=== PATIENT | male | born 1975 | race Caucasian/White ===

== ENCOUNTER 2018-12-05 | Emergency (ER) | payer OTHER ==
[~2018-12-05] MED LIST: ALBUTEROL2.5 MG/0.5 INH; AMBIEN PO; AMOXICILLIN500 MG PO; BENZONATATE100 M1 PO; CELEXA PO; CITALOPRAM HYDR20 MG PO; CYCLOBENZAPRINE PO; CYCLOBENZAPRINE10 MG PO; LEVAQUIN PO; MEDROL DOSEPAK4 MG PO; NAPROXEN PO; NAPROXEN500 M1 PO; NKHM PO; PANTOPRAZOLE SO40 MG PO; PREDNISONE PO; PREDNISONE10 MG PO; PROAIR HFA0.09 MG/AC INH; PROAIR HFA8.5 GM INH; QVAR0.08 MG/AC INH; ROBITUSSIN AC 110 ML PO; SINGULAIR PO; SINGULAIR10 M1 PO; TESSALON PERLES PO; ZOLPIDEM TART10 MG PO
[2018-12-05] MEDS ORDERED: ZOLPIDEM TART10 MG PO (22:46)
[2018-12-05] MEDS ORDERED: GABAPENTIN100 M2 PO (22:46)
[2018-12-05] MEDS ORDERED: VENLAFAXINE H37.5 M5 PO (22:47)
[2018-12-05] MEDS ORDERED: OMEPRAZOLE D/R20 MG PO (22:47)
[2018-12-05] MEDS ORDERED: CLINDAMYCIN150 MG PO (22:55)
[2018-12-05] MEDS ORDERED: IBU800 MG PO (22:55)
[2019-04-10] MEDS ORDERED: CIPRO500 MG PO (15:07)
[2019-04-10] MEDS ORDERED: ANTIBIOTIC28.4 GM T (15:07)
== END 2018-12-05 23:03 | disposition home or self-care (01) ==
DX: K02.9 Dental caries, unspecified (principal); K05.00 Acute gingivitis, plaque induced; K21.9 Gastro-esophageal reflux disease without esophagitis; J45.909 Unspecified asthma, uncomplicated; G89.29 Other chronic pain; Z88.8 Allergy status to other drugs, medicaments and biological substances; Z79.899 Other long term (current) drug therapy

== ENCOUNTER → 2019-08-21 | Outpatient (CLI) | payer OTHER ==
[~2019-08-21] MED LIST changes: +ANTIBIOTIC28.4 GM T; +CIPRO500 MG PO; +CLINDAMYCIN150 MG PO; +GABAPENTIN100 M2 PO; +IBU800 MG PO; +OMEPRAZOLE D/R20 MG PO; +VENLAFAXINE H37.5 M5 PO
== END | disposition home or self-care (01) ==
LOC: RAD 09:32
DX: M47.816 Spondylosis without myelopathy or radiculopathy, lumbar region (principal)

== ENCOUNTER 2019-10-31 20:34 | Emergency (ER) | payer OTHER ==
[~2019-10-31] VITALS: Ht 167.6 cm; Wt 85.3 kg
[2019-10-31] MEDS ORDERED: CYCLOBENZAPRINE10 MG PO (23:00)
== END 2019-10-31 23:02 | disposition home or self-care (01) ==
LOC: ED 20:34
DX: M54.41 Lumbago with sciatica, right side (principal); M51.36 Other intervertebral disc degeneration, lumbar region; J45.909 Unspecified asthma, uncomplicated; G89.29 Other chronic pain; K21.9 Gastro-esophageal reflux disease without esophagitis; F17.200 Nicotine dependence, unspecified, uncomplicated; Z88.8 Allergy status to other drugs, medicaments and biological substances; Z79.2 Long term (current) use of antibiotics; Z79.899 Other long term (current) drug therapy

== ENCOUNTER → 2019-11-17 | Outpatient (CLI) | payer OTHER | END | disposition home or self-care (01) | LOC: MRI 12:28 | DX: M47.817 Spondylosis without myelopathy or radiculopathy, lumbosacral region (principal); M48.061 Spinal stenosis, lumbar region without neurogenic claudication; M51.27 Other intervertebral disc displacement, lumbosacral region ==

== ENCOUNTER 2020-01-16 13:35 | Emergency (ER) | payer OTHER ==
[~2020-01-16] VITALS: Wt 80.3 kg
[2020-01-16 14:01] LABS: BASO # 0.1 10*3/uL (0.0-0.1); BASO % 0.7 % (0.0-1.0); EOS # 0.2 10*3/uL (0.0-0.4); EOS % 0.9 % (1.0-4.0); HEMATOCRIT 44.5 % (42.0-52.0); LYMPH # 2.5 10*3/uL (1.3-4.4); MEAN CELL VOLUME 89.9 fl (80.0-94.0); MEAN CORPUSCULAR HGB 30.3 pg (27.0-31.0); MEAN CORPUSCULAR HGB CONC 33.7 g/dl (33.0-37.0); MEAN PLATELET VOLUME 11.2 fl (9.6-12.3); MONO % 5.7 % (3.0-9.0); NEUT # 13.6 10*3/uL (2.3-7.9); NEUT % 78.1 % (47.0-73.0); PLATELET COUNT AUTOMATED 258 10*3/uL (130-400); RED BLOOD COUNT 4.95 10*6/uL (4.50-5.90); RED CELL DISTRI WIDTH 13.6 % (0-14.5); WHITE BLOOD COUNT 17.4 10*3/uL (4.8-10.8)
[2020-01-16 14:17] LABS: ALKALINE PHOSPHATASE 85 U/L (45-117); BUN 16 mg/dl (7-24); CHLORIDE 108 mmol/L (98-107); CREATININE 1.13 mg/dL (0.70-1.30); LIPASE 71 U/L (73-393); POTASSIUM 3.9 mmol/L (3.5-5.1); SGOT/AST 14 IU/L (3-35); SGPT/ALT 33 U/L (12-78); SODIUM 140 mmol/L (136-145); TOTAL PROTEIN 7.3 gm/dL (6.4-8.2)
[2020-01-16 15:32] LABS: BILIRUBIN 1+ (NEGATIVE); BLOOD 3+ (NEGATIVE); CLARITY CLEAR (CLEAR); COLOR YELLOW (YELLOW); GLUCOSE NEGATIVE (NEGATIVE); KETONE NEGATIVE (NEGATIVE); LEUKO ESTERASE NEGATIVE (NEGATIVE); NITRITE NEGATIVE (NEGATIVE); UROBILINOGEN 0.2 E.U./dl (0.2-1.0)
[2020-01-16 15:33] LABS: BACTERIA 1+; MUCOUS 2+; RBC 51-100 rbc/hpf (0-2)
[2020-01-16] MEDS ORDERED: KETOROLAC10 MG PO (17:15)
[2020-01-16] MEDS ORDERED: FLOMAX0.4 MG PO (17:15)
[2020-01-16] MEDS ORDERED: MIRALAX POWDER17 G1 PO (17:15)
[2020-01-16] MEDS ORDERED: ZOFRAN4 MG PO (17:15)
== END 2020-01-16 17:33 | disposition home or self-care (01) ==
LOC: ED 13:35
PROVIDERS: Nurse Practitioner Family
DX: N20.9 Urinary calculus, unspecified (principal); K59.00 Constipation, unspecified; J45.909 Unspecified asthma, uncomplicated; F31.9 Bipolar disorder, unspecified; F17.200 Nicotine dependence, unspecified, uncomplicated; K21.9 Gastro-esophageal reflux disease without esophagitis; Z79.899 Other long term (current) drug therapy; Z88.8 Allergy status to other drugs, medicaments and biological substances; Z79.2 Long term (current) use of antibiotics

== ENCOUNTER 2020-07-12 15:52 | Emergency (ER) | payer OTHER ==
[~2020-07-12 15:52] MED LIST changes: +FLOMAX0.4 MG PO; +KETOROLAC10 MG PO; +MIRALAX POWDER17 G1 PO; +ZOFRAN4 MG PO
[2020-07-12] MEDS ORDERED: IBU800 MG PO (18:35)
== END 2020-07-12 18:46 | disposition home or self-care (01) ==
LOC: ED 15:52
DX: S99.912A Unspecified injury of left ankle, initial encounter (principal); M79.672 Pain in left foot; J45.909 Unspecified asthma, uncomplicated; K21.9 Gastro-esophageal reflux disease without esophagitis; F17.200 Nicotine dependence, unspecified, uncomplicated; Z88.8 Allergy status to other drugs, medicaments and biological substances; Z79.899 Other long term (current) drug therapy; W22.8XXA Striking against or struck by other objects, initial encounter; Y93.89 Activity, other specified; Y92.89 Other specified places as the place of occurrence of the external cause; Y99.8 Other external cause status

== ENCOUNTER 2020-08-29 22:45 | Emergency (ER) | payer OTHER ==
[~2020-08-29] VITALS: Ht 165.1 cm; Wt 90.7 kg
[2020-08-29] MEDS ORDERED: NEURONTIN300 MG PO (22:54)
[2020-08-29] MEDS ORDERED: ZOLPIDEM10 MG PO (22:55)
[2020-08-29] MEDS ORDERED: ROPINIROLE HYD0.5 MG PO (22:55)
[2020-08-29] MEDS ORDERED: DIVALPROEX SOD250 MG PO (22:55)
[2020-08-29] MEDS ORDERED: MONTELUKAST SOD10 MG PO (22:55)
[2020-08-29] MEDS ORDERED: CELECOXIB200 M1 PO (22:55)
[2020-08-29] MEDS ORDERED: OMEPRAZOLE MAGN20 MG PO (22:56)
[2020-08-29] MEDS ORDERED: SERTRALINE HYDR50 MG PO (22:56)
[2020-08-29] MEDS ORDERED: PROAIR HFA8.5 GM INH (22:57)
== END 2020-08-30 00:07 | disposition home or self-care (01) ==
LOC: ED 22:45
DX: H61.23 Impacted cerumen, bilateral (principal); J06.9 Acute upper respiratory infection, unspecified; Z88.8 Allergy status to other drugs, medicaments and biological substances; Z79.899 Other long term (current) drug therapy

== ENCOUNTER → 2020-09-18 | Outpatient (CLI) | payer OTHER ==
[~2020-09-18] MED LIST changes: +CELECOXIB200 M1 PO; +DIVALPROEX SOD250 MG PO; +MONTELUKAST SOD10 MG PO; +NEURONTIN300 MG PO; +OMEPRAZOLE MAGN20 MG PO; +ROPINIROLE HYD0.5 MG PO; +SERTRALINE HYDR50 MG PO; +ZOLPIDEM10 MG PO
[2020-09-18 12:45] LABS: BASO # 0.1 10*3/uL (0.0-0.1); BASO % 0.7 % (0.0-1.0); EOS # 0.4 10*3/uL (0.0-0.4); EOS % 3.7 % (1.0-4.0); LYMPH # 3.3 10*3/uL (1.3-4.4); LYMPH % 32.4 % (27.0-41.0); MEAN CELL VOLUME 90.1 fl (80.0-94.0); MEAN CORPUSCULAR HGB 29.6 pg (27.0-31.0); MEAN CORPUSCULAR HGB CONC 32.8 g/dl (33.0-37.0); MEAN PLATELET VOLUME 10.8 fl (9.6-12.3); MONO # 0.5 10*3/uL (0.1-1.0); MONO % 4.6 % (3.0-9.0); NEUT # 5.9 10*3/uL (2.3-7.9); NEUT % 57.9 % (47.0-73.0); PLATELET COUNT AUTOMATED 248 10*3/uL (130-400); RED BLOOD COUNT 4.77 10*6/uL (4.50-5.90); WHITE BLOOD COUNT 10.1 10*3/uL (4.8-10.8)
[2020-09-18 13:10] LABS: ALBUMIN 3.5 gm/dl (3.1-4.5); ALKALINE PHOSPHATASE 88 U/L (45-117); BUN 14 mg/dl (7-24); CHLORIDE 109 mmol/L (98-107); CHOLESTEROL 187 mg/dL (<200); CREATININE 0.97 mg/dL (0.70-1.30); HDL CHOLESTEROL 50 mg/dl (40-60); LDL CHOLESTEROL 118 mg/dL (9-159); POTASSIUM 4.1 mmol/L (3.5-5.1); SGOT/AST 22 IU/L (3-35); SGPT/ALT 34 U/L (12-78); SODIUM 141 mmol/L (136-145); TOTAL PROTEIN 7.1 gm/dL (6.4-8.2); TRIGLYCERIDES 96 mg/dl (<150); VLDL CHOLESTEROL 19 mg/dL (6-40)
[2020-09-18 13:34] LABS: VITAMIN D, 25-HYDROXY 20.4 ng/mL (30-100)
== END | disposition home or self-care (01) ==
LOC: LAB 12:25
PROVIDERS: ATTEND Internal Medicine
DX: Z12.5 Encounter for screening for malignant neoplasm of prostate (principal); D52.9 Folate deficiency anemia, unspecified; D51.9 Vitamin B12 deficiency anemia, unspecified; R79.82 Elevated C-reactive protein (CRP); R74.8 Abnormal levels of other serum enzymes; R53.81 Other malaise; E55.9 Vitamin D deficiency, unspecified; Z00.00 Encounter for general adult medical examination without abnormal findings

== ENCOUNTER → 2021-04-25 | Outpatient (CLI) | payer OTHER | END | disposition home or self-care (01) | LOC: ORTHO 01:57 | PROVIDERS: ATTEND Orthopaedic Surgery | DX: M17.12 Unilateral primary osteoarthritis, left knee (principal); M25.862 Other specified joint disorders, left knee ==

== ENCOUNTER 2021-05-27 16:18 | Emergency (ER) | payer OTHER ==
[~2021-05-27] VITALS: Ht 167.6 cm; Wt 87.5 kg
[2021-05-27] MEDS ORDERED: DOXYCYCLINE100 M3 PO (20:04)
[2021-05-27] MEDS ORDERED: PROVENTIL HFA6.7 GM INH (20:04)
== END 2021-05-27 20:11 | disposition home or self-care (01) ==
LOC: ED 16:18
DX: J18.9 Pneumonia, unspecified organism (principal); Z88.8 Allergy status to other drugs, medicaments and biological substances; Z79.899 Other long term (current) drug therapy; Z98.890 Other specified postprocedural states

== ENCOUNTER 2021-07-19 18:54 | Inpatient (IN) | payer OTHER ==
[~2021-07-19] VITALS: Ht 167.6 cm; Wt 81.4 kg
[~2021-07-19 18:54] MED LIST changes: +DOXYCYCLINE100 M3 PO; +PENICILLIN VK500 MG PO; +PROVENTIL HFA6.7 GM INH
[2021-07-19 19:00] VITALS: BP 117/76
[2021-07-19 20:09] LABS: BASO # 0.1 10*3/uL (0.0-0.1); BASO % 0.6 % (0.0-1.0); EOS # 0.2 10*3/uL (0.0-0.4); EOS % 1.8 % (1.0-4.0); HEMATOCRIT 40.2 % (42.0-52.0); LYMPH # 2.6 10*3/uL (1.3-4.4); MEAN CELL VOLUME 89.5 fl (80.0-94.0); MEAN CORPUSCULAR HGB 29.4 pg (27.0-31.0); MEAN CORPUSCULAR HGB CONC 32.8 g/dl (33.0-37.0); MEAN PLATELET VOLUME 10.8 fl (9.6-12.3); MONO # 0.8 10*3/uL (0.1-1.0); MONO % 6.6 % (3.0-9.0); NEUT # 8.2 10*3/uL (2.3-7.9); NEUT % 68.7 % (47.0-73.0); PLATELET COUNT AUTOMATED 289 10*3/uL (130-400); RED BLOOD COUNT 4.49 10*6/uL (4.50-5.90); RED CELL DISTRI WIDTH 13.2 % (0-14.5); WHITE BLOOD COUNT 11.9 10*3/uL (4.8-10.8)
[2021-07-19 20:23] LABS: ALBUMIN 3.7 gm/dl (3.1-4.5); ALKALINE PHOSPHATASE 84 U/L (45-117); BUN 15 mg/dl (7-24); CHLORIDE 107 mmol/L (98-107); CREATININE 1.01 mg/dL (0.70-1.30); POTASSIUM 3.7 mmol/L (3.5-5.1); SGOT/AST 28 IU/L (3-35); SGPT/ALT 54 U/L (12-78); SODIUM 140 mmol/L (136-145); TOTAL PROTEIN 7.4 gm/dL (6.4-8.2)
[2021-07-19 21:49] VITALS: BP 122/79
[2021-07-19] MEDS ORDERED: DEPAKOTE250 MG PO (21:49)
[2021-07-19 23:35] VITALS: BP 126/70
[2021-07-20] MEDS ORDERED: PENICILLIN VK500 MG PO (00:04)
[2021-07-20] MEDS ORDERED: TRAZODONE50 MG PO (00:08)
[2021-07-20] MEDS ORDERED: ROPINIROLE HY0.25 MG PO (00:09)
[2021-07-20] MEDS ORDERED: VITAMIN D350 MC2 GT (00:11)
[2021-07-20 06:31] LABS: BASO # 0.1 10*3/uL (0.0-0.1); BASO % 0.9 % (0.0-1.0); EOS # 0.3 10*3/uL (0.0-0.4); EOS % 2.7 % (1.0-4.0); HEMATOCRIT 38.8 % (42.0-52.0); LYMPH # 2.6 10*3/uL (1.3-4.4); LYMPH % 28.1 % (27.0-41.0); MEAN CELL VOLUME 90.4 fl (80.0-94.0); MEAN CORPUSCULAR HGB 29.4 pg (27.0-31.0); MEAN CORPUSCULAR HGB CONC 32.5 g/dl (33.0-37.0); MEAN PLATELET VOLUME 11.1 fl (9.6-12.3); MONO # 0.7 10*3/uL (0.1-1.0); MONO % 7.1 % (3.0-9.0); NEUT # 5.6 10*3/uL (2.3-7.9); NEUT % 60.8 % (47.0-73.0); PLATELET COUNT AUTOMATED 271 10*3/uL (130-400); RED BLOOD COUNT 4.29 10*6/uL (4.50-5.90); RED CELL DISTRI WIDTH 13.2 % (0-14.5); WHITE BLOOD COUNT 9.3 10*3/uL (4.8-10.8)
[2021-07-20 06:38] LABS: BUN 13 mg/dl (7-24); CHLORIDE 107 mmol/L (98-107); POTASSIUM 3.7 mmol/L (3.5-5.1); SODIUM 139 mmol/L (136-145)
[2021-07-20 08:00] VITALS: BP 109/54
[2021-07-20 12:00] VITALS: BP 109/52
[2021-07-20 16:00] VITALS: BP 100/50
[2021-07-20 20:00] VITALS: BP 111/66
[2021-07-21] VITALS: BP 96/58
[2021-07-21 08:00] VITALS: BP 105/56
[2021-07-21] MEDS ORDERED: CLEOCIN HCL300 MG PO (08:33)
[2021-07-21 12:00] VITALS: BP 122/63
== END 2021-07-21 12:30 | disposition home or self-care (01) | DRG 114 ==
LOC: ED 18:54 → 5E 21:25 → EDHOLD 21:25 → 5E 22:49
PROVIDERS: Nurse Practitioner; ADMIT Internal Medicine; ATTEND Internal Medicine
DX: K04.7 Periapical abscess without sinus (principal); L03.211 Cellulitis of face; K02.9 Dental caries, unspecified; F31.9 Bipolar disorder, unspecified; K21.9 Gastro-esophageal reflux disease without esophagitis; F17.210 Nicotine dependence, cigarettes, uncomplicated; J45.20 Mild intermittent asthma, uncomplicated; Z88.8 Allergy status to other drugs, medicaments and biological substances

== ENCOUNTER 2022-04-08 14:37 | Emergency (ER) | payer OTHER ==
[~2022-04-08] VITALS: Wt 79.8 kg
[~2022-04-08 14:37] MED LIST changes: +CLEOCIN HCL300 MG PO; +DEPAKOTE250 MG PO; +ROPINIROLE HY0.25 MG PO; +TRAZODONE50 MG PO; +VITAMIN D350 MC2 GT
== END 2022-04-08 18:57 | disposition home or self-care (01) ==
LOC: ED 14:37
DX: M79.644 Pain in right finger(s) (principal); Z88.8 Allergy status to other drugs, medicaments and biological substances; Z79.899 Other long term (current) drug therapy

== ENCOUNTER 2022-07-10 04:51 | Emergency (ER) | payer OTHER ==
[~2022-07-10] VITALS: Ht 167.6 cm; Wt 72.6 kg
[2022-07-10 06:13] LABS: BASO # 0.1 10*3/uL (0.0-0.1); BASO % 0.7 % (0.0-1.0); EOS # 0.3 10*3/uL (0.0-0.4); EOS % 2.5 % (1.0-4.0); HEMATOCRIT 40.7 % (42.0-52.0); LYMPH # 2.1 10*3/uL (1.3-4.4); LYMPH % 17.6 % (27.0-41.0); MEAN CELL VOLUME 87.5 fl (80.0-94.0); MEAN CORPUSCULAR HGB 30.1 pg (27.0-31.0); MEAN CORPUSCULAR HGB CONC 34.4 g/dl (33.0-37.0); MEAN PLATELET VOLUME 11.2 fl (9.6-12.3); MONO # 0.9 10*3/uL (0.1-1.0); MONO % 7.2 % (3.0-9.0); NEUT # 8.4 10*3/uL (2.3-7.9); NEUT % 70.9 % (47.0-73.0); PLATELET COUNT AUTOMATED 222 10*3/uL (130-400); RED BLOOD COUNT 4.65 10*6/uL (4.50-5.90); RED CELL DISTRI WIDTH 13.2 % (0-14.5); WHITE BLOOD COUNT 11.8 10*3/uL (4.8-10.8)
[2022-07-10 06:27] LABS: ALKALINE PHOSPHATASE 95 U/L (45-117); BUN 18 mg/dl (7-24); CHLORIDE 109 mmol/L (98-107); POTASSIUM 3.7 mmol/L (3.5-5.1); SGOT/AST 20 IU/L (3-35); SGPT/ALT 31 U/L (12-78); SODIUM 140 mmol/L (136-145); TOTAL PROTEIN 6.8 gm/dL (6.4-8.2)
[2022-07-10 06:57] LABS: BILIRUBIN Negative (Negative); BLOOD 3+ (Negative); CLARITY Turbid (Clear); COLOR Yellow (Yellow); GLUCOSE Negative (Negative); KETONE Trace (Negative); LEUKO ESTERASE Negative (Negative); NITRITE Negative (Negative); PH 5.5 (4.5-8.0); SPECIFIC GRAVITY >= 1.030 (1.001-1.030)
[2022-07-10] MEDS ORDERED: REGLAN10 M1 PO (07:47)
[2022-07-10] MEDS ORDERED: NAPROXEN250 MG PO (07:47)
[2022-07-10] MEDS ORDERED: TYLENOL325 M1 PO (07:47)
[2022-07-10] MEDS ORDERED: FLOMAX0.4 MG PO (07:47)
[2022-07-10 08:03] LABS: BACTERIA 4+; CALCIUM OXALATE CRYSTALS 2+; RBC TNTC rbc/hpf (0-2)
== END 2022-07-10 07:59 | disposition home or self-care (01) ==
LOC: ED 04:51
PROVIDERS: Emergency Medicine
DX: N23 Unspecified renal colic (principal); K21.9 Gastro-esophageal reflux disease without esophagitis; J45.909 Unspecified asthma, uncomplicated; J44.9 Chronic obstructive pulmonary disease, unspecified; Z88.8 Allergy status to other drugs, medicaments and biological substances; Z79.899 Other long term (current) drug therapy

== ENCOUNTER 2022-12-31 01:10 | Emergency (ER) | payer OTHER ==
[~2022-12-31] VITALS: Ht 167.6 cm; Wt 83.9 kg
[~2022-12-31 01:10] MED LIST changes: +NAPROXEN250 MG PO; +REGLAN10 M1 PO; +TYLENOL325 M1 PO
[2022-12-31 02:18] LABS: BASO # 0.1 10*3/uL (0.0-0.1); BASO % 0.8 % (0.0-1.0); EOS # 0.3 10*3/uL (0.0-0.4); EOS % 3.9 % (1.0-4.0); HEMATOCRIT 40.4 % (42.0-52.0); LYMPH # 3.7 10*3/uL (1.3-4.4); LYMPH % 43.9 % (27.0-41.0); MEAN CELL VOLUME 91.2 fl (80.0-94.0); MEAN CORPUSCULAR HGB 29.3 pg (27.0-31.0); MEAN CORPUSCULAR HGB CONC 32.2 g/dl (33.0-37.0); MEAN PLATELET VOLUME 11.5 fl (9.6-12.3); MONO # 0.4 10*3/uL (0.1-1.0); MONO % 5.1 % (3.0-9.0); NEUT # 3.9 10*3/uL (2.3-7.9); NEUT % 46.1 % (47.0-73.0); PLATELET COUNT AUTOMATED 204 10*3/uL (130-400); RED BLOOD COUNT 4.43 10*6/uL (4.50-5.90); RED CELL DISTRI WIDTH 13.7 % (0-14.5); WHITE BLOOD COUNT 8.5 10*3/uL (4.8-10.8)
[2022-12-31 02:36] LABS: ALKALINE PHOSPHATASE 92 U/L (46-116); BUN 14 mg/dl (9-23); CHLORIDE 105 mmol/L (98-107); POTASSIUM 4.2 mmol/L (3.4-5.1); SGPT/ALT 14 U/L (10-49); TOTAL PROTEIN 6.8 gm/dL (6.0-8.0)
[2022-12-31] MEDS ORDERED: ZITHROMAX250 MG PO (03:37)
[2022-12-31] MEDS ORDERED: BENZONATATE100 M1 PO (03:37)
== END 2022-12-31 03:42 | disposition home or self-care (01) ==
LOC: ED 01:10
PROVIDERS: Emergency Medicine
DX: J20.9 Acute bronchitis, unspecified (principal); J06.9 Acute upper respiratory infection, unspecified; K21.9 Gastro-esophageal reflux disease without esophagitis; J45.909 Unspecified asthma, uncomplicated; F17.200 Nicotine dependence, unspecified, uncomplicated; Z79.899 Other long term (current) drug therapy

== ENCOUNTER 2023-01-21 15:17 | Emergency (ER) | payer OTHER ==
[~2023-01-21] VITALS: Wt 81.6 kg
[~2023-01-21 15:17] MED LIST changes: +ZITHROMAX250 MG PO
[2023-01-21] MEDS ORDERED: CLEOCIN HCL150 MG PO (15:50)
== END 2023-01-21 16:01 | disposition home or self-care (01) ==
LOC: ED 15:17
DX: K08.89 Other specified disorders of teeth and supporting structures (principal); E87.6 Hypokalemia; J45.909 Unspecified asthma, uncomplicated; K21.9 Gastro-esophageal reflux disease without esophagitis; F31.9 Bipolar disorder, unspecified; Z88.8 Allergy status to other drugs, medicaments and biological substances; Z98.890 Other specified postprocedural states

== ENCOUNTER 2023-03-30 14:28 | Emergency (ER) | payer OTHER ==
[~2023-03-30] VITALS: Ht 167.6 cm; Wt 80.7 kg
[~2023-03-30 14:28] MED LIST changes: +CLEOCIN HCL150 MG PO
[2023-03-30] MEDS ORDERED: NAPROSYN500 MG PO (16:23)
== END 2023-03-30 16:42 | disposition home or self-care (01) ==
LOC: ED 14:28
DX: M94.0 Chondrocostal junction syndrome [Tietze] (principal); E87.6 Hypokalemia; J44.9 Chronic obstructive pulmonary disease, unspecified; K21.9 Gastro-esophageal reflux disease without esophagitis; F31.9 Bipolar disorder, unspecified; Z88.8 Allergy status to other drugs, medicaments and biological substances; Z98.890 Other specified postprocedural states

== ENCOUNTER 2023-05-12 19:00 | Emergency (ER) | payer OTHER ==
[~2023-05-12] VITALS: Ht 152.4 cm; Wt 78.5 kg
[~2023-05-12 19:00] MED LIST changes: +NAPROSYN500 MG PO
[2023-05-12] MEDS ORDERED: METHOCARBAMOL500 M1 PO (20:37)
== END 2023-05-12 20:40 | disposition home or self-care (01) ==
LOC: ED 19:00
DX: M54.12 Radiculopathy, cervical region (principal); E87.6 Hypokalemia; K21.9 Gastro-esophageal reflux disease without esophagitis; J44.9 Chronic obstructive pulmonary disease, unspecified; F31.9 Bipolar disorder, unspecified; Z88.8 Allergy status to other drugs, medicaments and biological substances; Z98.890 Other specified postprocedural states

== ENCOUNTER 2023-06-09 21:22 | Emergency (ER) | payer OTHER ==
[~2023-06-09] VITALS: Ht 167.6 cm; Wt 77.1 kg
[~2023-06-09 21:22] MED LIST changes: +METHOCARBAMOL500 M1 PO
[2023-06-09 23:10] LABS: BASO # 0.1 10*3/uL (0.0-0.1); BASO % 0.5 % (0.0-1.0); EOS # 0.1 10*3/uL (0.0-0.4); EOS % 0.9 % (1.0-4.0); HEMATOCRIT 41.6 % (42.0-52.0); LYMPH # 1.8 10*3/uL (1.3-4.4); MEAN CELL VOLUME 88.9 fl (80.0-94.0); MEAN CORPUSCULAR HGB 30.1 pg (27.0-31.0); MEAN CORPUSCULAR HGB CONC 33.9 g/dl (33.0-37.0); MEAN PLATELET VOLUME 11.6 fl (9.6-12.3); MONO # 0.6 10*3/uL (0.1-1.0); MONO % 4.2 % (3.0-9.0); NEUT # 12.4 10*3/uL (2.3-7.9); NEUT % 82.2 % (47.0-73.0); PLATELET COUNT AUTOMATED 231 10*3/uL (130-400); RED BLOOD COUNT 4.68 10*6/uL (4.50-5.90); RED CELL DISTRI WIDTH 13.7 % (0-14.5); WHITE BLOOD COUNT 15.1 10*3/uL (4.8-10.8)
[2023-06-09 23:29] LABS: ALKALINE PHOSPHATASE 90 U/L (46-116); BUN 7 mg/dl (9-23); CHLORIDE 107 mmol/L (98-107); POTASSIUM 3.7 mmol/L (3.4-5.1); SGPT/ALT 16 U/L (10-49); TOTAL PROTEIN 6.3 gm/dL (6.0-8.0)
[2023-06-09 23:42] LABS: BILIRUBIN Negative (Negative); BLOOD Negative (Negative); CLARITY Clear (Clear); COLOR Yellow (Yellow); GLUCOSE Negative (Negative); KETONE Negative (Negative); LEUKO ESTERASE Negative (Negative); NITRITE Negative (Negative)
[2023-06-09 23:49] LABS: WBC 0-2 wbc/hpf (0-5)
[2023-06-10] MEDS ORDERED: LEVOFLOXACIN750 M2 PO (02:49)
== END 2023-06-10 02:54 | disposition home or self-care (01) ==
LOC: ED 21:22
PROVIDERS: Emergency Medicine
DX: J18.9 Pneumonia, unspecified organism (principal); E87.6 Hypokalemia; K21.9 Gastro-esophageal reflux disease without esophagitis; J44.9 Chronic obstructive pulmonary disease, unspecified; F31.9 Bipolar disorder, unspecified; Z88.8 Allergy status to other drugs, medicaments and biological substances; Z98.890 Other specified postprocedural states

== ENCOUNTER 2023-06-22 15:30 | Emergency (ER) | payer OTHER ==
[~2023-06-22] VITALS: Ht 167.6 cm; Wt 75.3 kg
[~2023-06-22 15:30] MED LIST changes: +LEVOFLOXACIN750 M2 PO
[2023-06-22 16:32] LABS: BASO # 0.1 10*3/uL (0.0-0.1); EOS # 0.4 10*3/uL (0.0-0.4); EOS % 3.1 % (1.0-4.0); HEMATOCRIT 44.8 % (42.0-52.0); LYMPH # 4.6 10*3/uL (1.3-4.4); LYMPH % 41.3 % (27.0-41.0); MEAN CELL VOLUME 87.8 fl (80.0-94.0); MEAN CORPUSCULAR HGB 29.4 pg (27.0-31.0); MEAN CORPUSCULAR HGB CONC 33.5 g/dl (33.0-37.0); MEAN PLATELET VOLUME 11.5 fl (9.6-12.3); MONO # 0.5 10*3/uL (0.1-1.0); MONO % 4.1 % (3.0-9.0); NEUT # 5.6 10*3/uL (2.3-7.9); NEUT % 50.2 % (47.0-73.0); PLATELET COUNT AUTOMATED 265 10*3/uL (130-400); RED CELL DISTRI WIDTH 13.8 % (0-14.5); WHITE BLOOD COUNT 11.2 10*3/uL (4.8-10.8)
[2023-06-22 16:43] LABS: ACT PARTIAL THROMBO TIME 30.2 SECONDS (20.0-32.1)
[2023-06-22 16:54] LABS: ALKALINE PHOSPHATASE 97 U/L (46-116); BUN 12 mg/dl (9-23); CHLORIDE 107 mmol/L (98-107); LIPASE 30 U/L (12-53); POTASSIUM 3.4 mmol/L (3.4-5.1); SGPT/ALT 19 U/L (10-49); TOTAL PROTEIN 6.8 gm/dL (6.0-8.0)
== END 2023-06-22 19:24 | disposition home or self-care (01) ==
LOC: ED 15:30
PROVIDERS: Emergency Medicine
DX: R06.00 Dyspnea, unspecified (principal); R42 Dizziness and giddiness; K21.9 Gastro-esophageal reflux disease without esophagitis; J44.9 Chronic obstructive pulmonary disease, unspecified; F31.9 Bipolar disorder, unspecified; Z88.8 Allergy status to other drugs, medicaments and biological substances; Z98.890 Other specified postprocedural states; E87.6 Hypokalemia

== ENCOUNTER → 2023-07-06 | Outpatient (CLI) | payer OTHER ==
[2023-07-06 12:51] LABS: BASO # 0.1 10*3/uL (0.0-0.1); BASO % 1.1 % (0.0-1.0); EOS # 0.3 10*3/uL (0.0-0.4); EOS % 4.2 % (1.0-4.0); HEMATOCRIT 44.1 % (42.0-52.0); LYMPH # 3.1 10*3/uL (1.3-4.4); LYMPH % 41.2 % (27.0-41.0); MEAN CELL VOLUME 89.6 fl (80.0-94.0); MEAN CORPUSCULAR HGB 29.9 pg (27.0-31.0); MEAN CORPUSCULAR HGB CONC 33.3 g/dl (33.0-37.0); MEAN PLATELET VOLUME 11.5 fl (9.6-12.3); MONO # 0.4 10*3/uL (0.1-1.0); MONO % 5.4 % (3.0-9.0); NEUT # 3.6 10*3/uL (2.3-7.9); NEUT % 47.7 % (47.0-73.0); PLATELET COUNT AUTOMATED 239 10*3/uL (130-400); RED BLOOD COUNT 4.92 10*6/uL (4.50-5.90); RED CELL DISTRI WIDTH 14.1 % (0-14.5); WHITE BLOOD COUNT 7.5 10*3/uL (4.8-10.8)
[2023-07-06 13:25] LABS: ALKALINE PHOSPHATASE 102 U/L (46-116); BUN 8 mg/dl (9-23); CHLORIDE 108 mmol/L (98-107); CHOLESTEROL 163 mg/dL (<200); FREE T4 0.91 ng/dl (0.89-1.76); LDL CHOLESTEROL 106 mg/dL (9-159); POTASSIUM 4.4 mmol/L (3.4-5.1); SGPT/ALT 17 U/L (10-49); TOTAL PROTEIN 6.9 gm/dL (6.0-8.0); TRIGLYCERIDES 92 mg/dl (<150); VITAMIN D, 25-HYDROXY 37.9 ng/mL (30-100)
== END | disposition home or self-care (01) ==
LOC: LAB 12:36
PROVIDERS: ATTEND Internal Medicine
DX: Z12.5 Encounter for screening for malignant neoplasm of prostate (principal); J44.1 Chronic obstructive pulmonary disease with (acute) exacerbation; F31.9 Bipolar disorder, unspecified; F41.1 Generalized anxiety disorder; F33.1 Major depressive disorder, recurrent, moderate; F33.0 Major depressive disorder, recurrent, mild

== ENCOUNTER 2024-03-31 13:44 | Emergency (ER) | payer BC, OTHER ==
[~2024-03-31] VITALS: Ht 167.6 cm; Wt 83.9 kg
[2024-03-31] MEDS ORDERED: VENT7GM INH (14:06)
[2024-03-31] MEDS ORDERED: VITAMIN D350 MC2 PO (14:06)
[2024-03-31] MEDS ORDERED: Ketorolac Tromethamine 60 MG/2 ML VIAL IM ONE (14:10)
== END 2024-03-31 15:51 | disposition home or self-care (01) ==
LOC: ED 13:44
DX: M25.562 Pain in left knee (principal); J45.909 Unspecified asthma, uncomplicated; K21.9 Gastro-esophageal reflux disease without esophagitis; F31.9 Bipolar disorder, unspecified; E87.6 Hypokalemia; Z88.8 Allergy status to other drugs, medicaments and biological substances; Z98.890 Other specified postprocedural states; Z87.891 Personal history of nicotine dependence